=== PATIENT | female | born 1990 | race Caucasian/White ===

== ENCOUNTER 2018-02-11 18:12 | Observation (INO) ==
--- NOTE | 2018-02-11 19:20 | Emergency Department Note ---
Disposition Clinical Impression: Heart palpitations Syncope Qualifiers: Syncope type: unspecified Qualified Code(s): R55 - Syncope and collapse Chest pain Qualifiers: Chest pain type: unspecified Qualified Code(s): R07.9 - Chest pain, unspecified Disposition: Admitted As Inpatient Condition: Good Instructions: Syncope (ED) Referrals: Clarice Tirado DO [Primary Care Provider] - Forms: ED Satisfaction Letter Time of Disposition: 20:34 General Adult HPI - General Chief complaint: ED Syncope Stated complaint: syncopal episode,headache Time Seen by Provider: 02/11/18 18:30 Source: patient Mode of arrival: ambulatory Limitations: no limitations Nursing Notes Reviewed: Yes Vital Signs Reviewed: Yes - History of Present Illness HPI Narrative: Patient is a 27-year-old female that presents the emergency department after a syncopal episode. Patient states that this is been the third time that she has passed out in approximately 5 days. Patient states that she has been seen at our ER yesterday and outside hospital approximately 4 days ago. Patient states that both workups were negative and she was discharged home. Patient states that during her episodes of syncope she has palpitations and feels like her heart is fluttering and has chest pain. Patient denies any previous episodes of syncope prior to the past 5 days. Patient does state that she has had upper respiratory symptoms including cough and nasal congestion. Pain Scale: 5 - Related Data Home Medications Medication Instructions Recorded Confirmed ARIPiprazole [Abilify] 5 mg PO DAILY 02/11/18 02/11/18 Escitalopram [Lexapro] 20 mg PO HS 02/11/18 02/11/18 Norethindrone AC-Eth Estradiol 1 tab PO DAILY 02/11/18 02/11/18 [Microgestin 21 1-20 Tablet] clonazePAM [Klonopin] 0.5 mg PO BID 02/11/18 02/11/18 Allergies Allergy/AdvReac Type Severity Reaction Status Date / Time Sulfa (Sulfonamide Allergy See Verified 02/11/18 20:20 Antibiotics) Comments bupropion [From Wellbutrin] AdvReac Hypertensio Verified 02/11/18 20:20 n All systems ED: reviewed and negative except as stated. Cardiovascular: Reports: chest pain, palpitations Respiratory: Reports: cough. 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 Absent: respiratory distress, wheezes - Cardiovascular Cardiovascular exam: Present: regular rate, normal rhythm, normal heart sounds, +S1, +S2 - Abdominal Exam Abdominal exam: Present: soft, Non-Tender, normal bowel sounds - Neurological Exam Neurological exam: Present: alert, oriented X3 - Psychiatric Psychiatric exam: Present: normal affect, normal mood - Skin Skin exam: Present: warm, dry, intact Course Vital Signs Temperature 98.3 F 02/11/18 18:15 Pulse Rate 96 02/11/18 18:15 Respiratory Rate 15 02/11/18 18:15 Blood Pressure 124/88 02/11/18 18:15 O2 Sat by Pulse Oximetry 98 02/11/18 18:15 Temperature 98.3 F 02/11/18 18:25 Pulse Rate 79 02/11/18 20:14 Respiratory Rate 20 02/11/18 20:14 Blood Pressure 122/90 02/11/18 20:14 O2 Sat by Pulse Oximetry 96 02/11/18 20:14 Oxygen Delivery Oxygen Delivery Room Air Medical Decision Making - [facility] Narrative Medical decision making narrative: Due the patient having multiple syncopal episodes we will obtain basic laboratory testing including H&H, BMP, troponin and EKG. The patient will need to be admitted to the hospital for further evaluation and management due to unclear etiology why the patient has been having the syncopal episodes. Patient 's laboratory testing was unremarkable. EKG did not show any ischemic changes or any evidence of cardiac arrhythmia at this time. Due the patient's recurrence of syncopal episodes of unexplained etiology and feel that is necessary for the patient to be admitted to the hospital for further evaluation and management. This was discussed with the patient and she was agreeable for admission. Patient will be admitted to the hospital this time for further evaluation and management. I called and spoke with the admitting hospitalist Dr. Nunez and he is except the patient to their service. Patient be admitted to the hospital this time for further evaluation and management. - Lab Data Lab results reviewed: Yes I reviewed the patient's lab results. Result diagrams: 02/11/18 19:19 02/11/18 19:19 Lab Results 02/11/18 02/11/18 Range/Units 19:19 19:19 Hgb 13.3 (11.5-15.4) g/dL Hct 38.2 (35.3-44.9) % Sodium 139 (136-145) mEq/L Potassium 3.8 (3.5-5.1) mEq/L Chloride 108 H (98-107) mEq/L Carbon Dioxide 23 (23-29) mEq/L BUN 7 (6-20) mg/dL Creatinine 0.69 (0.60-1.20) mg/dL Est GFR ( Amer) > 60 (> 60) Est GFR (Non-Af Amer) > 60 (> 60) BUN/Creatinine Ratio 10 (6-26) Glucose 112 H (70-105) mg/dL Calculated Osmolality 287 (280-300) Calcium 9.4 (8.6-10.3) mg/dL Troponin I < 0.03 (< 0.04) ng/mL - EKG Data EKG #1 EKG attestation: Yes I reviewed and interpreted this EKG. EKG results narrative: EKG shows a sinus rhythm at 70 beats from the, ND interval of 172, QRS duration 91, QTC of 419. Normal axis. No evidence of STEMI and EKG. No evidence of WPW or Brugada.
[2018-02-11 19:40] LABS: Hematocrit 38.2 % (35.3-44.9); Hemoglobin 13.3 g/dL (11.5-15.4)
[2018-02-11 20:01] LABS: Troponin I < 0.03 ng/mL (< 0.04)
[2018-02-11 20:04] LABS: BUN/Creatinine Ratio 10 (6-26); Blood Urea Nitrogen 7 mg/dL (6-20); Calcium 9.4 mg/dL (8.6-10.3); Carbon Dioxide 23 mEq/L (23-29); Chloride 108 mEq/L (98-107); Glucose 112 mg/dL (70-105); Osmolality,Calculated 287 (280-300); Potassium 3.8 mEq/L (3.5-5.1); Sodium 139 mEq/L (136-145); eGFR For Non-African Americans > 60 (> 60)
--- NOTE | 2018-02-11 21:12 | Emergency Department Note ---
Disposition Clinical Impression: Heart palpitations Syncope Qualifiers: Syncope type: unspecified Qualified Code(s): R55 - Syncope and collapse Chest pain Qualifiers: Chest pain type: unspecified Qualified Code(s): R07.9 - Chest pain, unspecified Disposition: Admitted As Inpatient Condition: Good Instructions: Syncope (ED) Referrals: Clarice Tirado DO [Primary Care Provider] - Forms: ED Satisfaction Letter General Adult HPI - General Chief complaint: ED Syncope Stated complaint: syncopal episode,headache Time Seen by Provider: 02/11/18 18:30 Source: patient Mode of arrival: ambulatory Limitations: no limitations - History of Present Illness Pain Scale: 5 - Related Data Home Medications Medication Instructions Recorded Confirmed ARIPiprazole [Abilify] 5 mg PO DAILY 02/11/18 02/11/18 Escitalopram [Lexapro] 20 mg PO HS 02/11/18 02/11/18 Norethindrone AC-Eth Estradiol 1 tab PO DAILY 02/11/18 02/11/18 [Microgestin 21 1-20 Tablet] clonazePAM [Klonopin] 0.5 mg PO BID 02/11/18 02/11/18 Allergies Allergy/AdvReac Type Severity Reaction Status Date / Time Sulfa (Sulfonamide Allergy See Verified 02/11/18 20:20 Antibiotics) Comments bupropion [From Wellbutrin] AdvReac Hypertensio Verified 02/11/18 20:20 n Cardiovascular: Reports: chest pain, palpitations Respiratory: Reports: cough. 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 - Social History Smoking Status: Current every day smoker Smokeless Tobacco Status: No Alcohol use: Reports: none Drug use: Reports: none Physical Exam - General Limitations: no limitations General appearance: alert, in no apparent distress Course Vital Signs Temperature 98.3 F 02/11/18 18:15 Pulse Rate 96 02/11/18 18:15 Respiratory Rate 15 02/11/18 18:15 Blood Pressure 124/88 02/11/18 18:15 O2 Sat by Pulse Oximetry 98 02/11/18 18:15 Temperature 98.3 F 08/28/18 18:25 Pulse Rate 79 02/11/18 20:14 Respiratory Rate 20 02/11/18 20:14 Blood Pressure 122/90 02/11/18 20:14 O2 Sat by Pulse Oximetry 96 02/11/18 20:14 Oxygen Delivery Oxygen Delivery Room Air Medical Decision Making - Lab Data Result diagrams: 02/11/18 19:19 02/11/18 19:19 Lab Results 02/11/18 02/11/18 Range/Units 19:19 19:19 Hgb 13.3 (11.5-15.4) g/dL Hct 38.2 (35.3-44.9) % Sodium 139 (136-145) mEq/L Potassium 3.8 (3.5-5.1) mEq/L Chloride 108 H (98-107) mEq/L Carbon Dioxide 23 (23-29) mEq/L BUN 7 (6-20) mg/dL Creatinine 0.69 (0.60-1.20) mg/dL Est GFR ( Amer) > 60 (> 60) Est GFR (Non-Af Amer) > 60 (> 60) BUN/Creatinine Ratio 10 (6-26) Glucose 112 H (70-105) mg/dL Calculated Osmolality 287 (280-300) Calcium 9.4 (8.6-10.3) mg/dL Troponin I < 0.03 (< 0.04) ng/mL Attestation Statement - Attestation Attestation: I examined this patient and my medical decision-making was reviewed with the Resident Physician. I agree with the documented findings, disposition and treatment plan as described except to the extent set forth below. Recurrent syncope, 3 times over the last 2-3 days, associated with chest pain and palpitations. EKG was reviewed by me and by the resident, no evidence of ARVC, Brugada syndrome, Iaxxk-Dbhsonxnx-Aziia syndrome, ischemia or any other abnormality. Normal intervals and QRS duration. Due to the recurrent nature of her syncope and associated palpitations, admission for cardiac monitoring and radiology evaluation is warranted.
[2018-02-12] MEDS ORDERED: Naloxone 0.4 MG/ML INJ IVP PRN (01:18)
--- NOTE | 2018-02-12 01:26 | Internal Med History&Physical ---
Date of Encounter: 02/12/18 Time of Encounter: 01:23 Internal Medicine - H&P: HPI Chief complaint: passed out History of present illness: Ms. George is a 27 year old female with past medical history of generalized anxiety disorder and depression came in with complaining of multiple episodes of syncope. Patient had an episode of syncope on Saturday and yesterday. On one of the episodes which happened at work while she was standing and talking. See felt that something was wrong and had palpitations before she passed out. She was slowly able to land herself on the floor. Does not think that she had any seizure episodes. Denies any previous history of seizure episodes. Denied nausea or sweating before passing out. She did have some sensation of room spinning however also felt blacking out before passing out. Denies previous episodes of syncope before Saturday. Loss of consciousness about less than 30 seconds every time. She would have headaches after regaining consciousness. Denies any shortness of breath or sweating episodes. Does have occasional sharp pain on the left side of her chest. No identifiable provocative factors. No past history of any heart problems. No family history of any heart problems. She does have some diarrhea over the past week. She has about 2-3 episodes of loose bowel movements after she eats over the last week. She has some cough over the past few days and feels her sinuses are somewhat congested. Denies any hearing problem, sore throat or ear discharge. She has been taking Abilify and Lexapro for many months. Clonopin started recently. Past Med Surg Social Fam HX - Past Medical History Medical history: migraine Additional medical history: Ulcers Psychiatric history: anxiety, depression - Past Surgical History Surgical History: cholecystectomy Additional surgical history: D & C - Social History Smoking Status: Current every day smoker Smokeless Tobacco Status: No Alcohol use: none Drug use: none - Family History Mother Hx Family Cardiac Disorders: Yes (HTN) Hx Family Endocrine Disorder: Yes (DM) Internal Medicine - H&P: Meds ARIPiprazole [Abilify] 5 mg PO DAILY 02/11/18 [History] Escitalopram [Lexapro] 20 mg PO HS 02/11/18 [History] Norethindrone AC-Eth Estradiol [Microgestin 21 1-20 Tablet] 1 tab PO DAILY 02/11 [History] clonazePAM [Klonopin] 0.5 mg PO BID 02/11/18 [History] 3 Allergy/AdvReac Type Severity Reaction Status Date / Time Sulfa (Sulfonamide Allergy See Verified 02/11/18 20:20 Antibiotics) Comments bupropion [From Wellbutrin] AdvReac Hypertensio Verified 02/11/18 20:20 n All Systems PM: A 10-system review of systems was performed and is negative for pertinent findings except as documented above in the HPI. - Constitutional Vitals: Temp Pulse Resp BP Pulse Ox 98.4 F 68 16 113/75 98 02/11/18 23:39 02/11/18 23:39 02/11/18 23:39 02/11/18 23:42 02/11/18 23:39 General appearance: Present: A&O X 3, no acute distress, obese Exam: Const: Vital signs listed above. In no acute distress. Alert and oriented Xs 3. No mood disorders noted, calm affect. Eyes: Sclera white, conjunctiva clear, lids are without lag. PERRLA. Pupils and irises are equal and round without defect. ENT: TMs intact and clear, normal canals, grossly normal hearing. Oropharanx clear and moist without erythema. Gums pink, good dentition. Lymph/Neck: No masses, thyromegaly, or abnormal cervical notes. No bruit. Tracheal midline. Cardio: RRR, Normal S1, S2 w/o murmurs, rubs or gallops. Skin warm and dry. No peripheral edema. Respiratory: Chest symmetrical, respirations non-labored. Clear bilaterally to auscultation. No adventitious sounds. Musculo: No deformity or scoliosis noted. No gait disturbance noted. No cyanosis or edema. Pulses normal in all 4 extremities. No atrophy or abnormal movements. Appropriate muscle strength bilaterally. Neurologic: No focal deficits, cranial nerves II-XII grossly intact with normal sensation, reflexes, coordination, muscle strength and tone. GI/Abdomen: Soft, non tender, non distended, no hepatosplemomegaly, normal bowel sounds, no masses noted. Internal Med - H&P Results - Labs CBC & Chem 7: 02/11/18 19:19 02/11/18 19:19 - Assessment and plan (1) Syncopal episodes Current Visit: Yes Status: Acute Assessment and plan: - Syncopal episodes with a sensation of palpitation before. - EKG shows normal sinus rhythm. No previous history of arrhythmias or cardiac problems. Recent head CT,chest x-ray and chest CTA unremarkable. - We will monitor patient on telemetry. - We will obtain orthostatic Vitals. - Consult cardiology in the morning. We will defer echocardiogram to cardiology. - Possible that could be related to her mild diarrhea. However it appears to be less likely. ENT causes pierced to be unlikely. Qualifiers: Syncope type: unspecified Qualified Code(s): R55 - Syncope and collapse (2) Heart palpitations Current Visit: Yes Status: Acute Assessment and plan: See above (3) Depression Current Visit: No Status: Chronic Assessment and plan: Continue home Abilify and Lexapro Qualifiers: Depression Type: major depressive disorder Major depression recurrence: recurrent Active/Remission status: currently active Major depression episode severity: mild Qualified Code(s): F33.0 - Major depressive disorder, recurrent, mild (4) DVT prophylaxis Current Visit: Yes Status: Acute Assessment and plan: Low risk. - Not indicated - Time Spent With Patient Total time spent is greater than 50% in coordination of care (as documented) at patient's floor/unit and/or counseling patient: - VTE Reasons for not Prescribing Prophylaxis: Treatment not Indicated - Low risk for VTE
[2018-02-12] MEDS: clonazePAM 0.5 MG TABLET PO SCH ×2 (08:45→20:19)
[2018-02-12] MEDS: ARIPiprazole 5 MG TABLET PO SCH (08:45)
[2018-02-12 11:51] LABS: BUN/Creatinine Ratio 12 (6-26); Blood Urea Nitrogen 8 mg/dL (6-20); Calcium 9.3 mg/dL (8.6-10.3); Carbon Dioxide 27 mEq/L (23-29); Chloride 107 mEq/L (98-107); Glucose 99 mg/dL (70-105); Osmolality,Calculated 288 (280-300); Potassium 4.1 mEq/L (3.5-5.1); Sodium 140 mEq/L (136-145); eGFR For Non-African Americans > 60 (> 60)
--- NOTE | 2018-02-12 12:14 | Internal Med Progress Note ---
Hospitalist Progress Note - Encounter Date of Encounter: 02/12/18 Time of Encounter: 12:14 - Subjective Interval History: Patient seen and examined at bedside. She denies any CP or palpitations voiced at this time - Exam Vitals: Temp Pulse Resp BP Pulse Ox 98.3 F 89 14 105/65 94 02/12/18 11:24 02/12/18 11:24 02/12/18 11:24 02/12/18 11:24 02/12/18 11:24 Exam: Const: Vital signs listed above. In no acute distress. Alert and oriented Xs 3. No mood disorders noted, calm affect. Eyes: Sclera white, conjunctiva clear, lids are without lag. PERRLA. Pupils and irises are equal and round without defect. ENT: TMs intact and clear, normal canals, grossly normal hearing. Oropharanx clear and moist without erythema. Gums pink, good dentition. Lymph/Neck: No masses, thyromegaly, or abnormal cervical notes. No bruit. Tracheal midline. Cardio: RRR, Normal S1, S2 w/o murmurs, rubs or gallops. Skin warm and dry. No peripheral edema. Respiratory: Chest symmetrical, respirations non-labored. Clear bilaterally to auscultation. No adventitious sounds. Musculo: No deformity or scoliosis noted. No gait disturbance noted. No cyanosis or edema. Pulses normal in all 4 extremities. No atrophy or abnormal movements. Appropriate muscle strength bilaterally. Neurologic: No focal deficits, cranial nerves II-XII grossly intact with normal sensation, reflexes, coordination, muscle strength and tone. GI/Abdomen: Soft, non tender, non distended, no hepatosplemomegaly, normal bowel sounds, no masses noted. - Assessment and Plan (1) Syncopal episodes Current Visit: Yes Status: Acute Assessment and Plan: - Syncopal episodes with a sensation of palpitation prior to incident - EKG shows normal sinus rhythm. No previous history of arrhythmias or cardiac problems. Recent head CT,chest x-ray and chest CTA unremarkable. - Cont monitor patient on telemetry. - We will obtain orthostatic Vitals. - Consult cardiology appreciate recommendations - cardiac echo (2) Depression Current Visit: No Status: Chronic Assessment and Plan: Continue home Abilify and Lexapro (3) Heart palpitations Current Visit: Yes Status: Acute Assessment and Plan: See above (4) DVT prophylaxis Current Visit: Yes Status: Acute Assessment and Plan: Low risk. - Not indicated - Time Spent with Patient Total time spent is greater than 50% in coordination of care (as documented) at patient's floor/unit and/or counseling patient: Internal Medicine: Result - Labs CBC & Chem 7: 02/11/18 19:19 02/12/18 10:40 Labs: BMP 02/12/18 10:40 Sodium 140 Potassium 4.1 Chloride 107 Carbon Dioxide 27 BUN 8 Creatinine 0.69 Glucose 99 Calcium 9.3 - VTE Reasons for not Prescribing Prophylaxis: Treatment not Indicated - Low risk for VTE Consult Discharge Plan - Plan Referrals: Clarice Tirado DO [Primary Care Provider] - (1) Syncopal episodes Qualifiers: Syncope type: unspecified Qualified Code(s): R55 - Syncope and collapse (2) Depression Qualifiers: Depression Type: major depressive disorder Major depression recurrence: recurrent Active/Remission status: currently active Major depression episode severity: mild Qualified Code(s): F33.0 - Major depressive disorder, recurrent , mild
[2018-02-12] MEDS ORDERED: Ibuprofen 400 MG TABLET PO PRN (16:34)
--- NOTE | 2018-02-13 08:28 | Cardiology Consult Note ---
Date of Encounter: 02/13/18 Time of Encounter: 09:42 Assessment and Plan (1) Heart palpitations Current Visit: Yes Status: Acute (2) Syncopal episodes Current Visit: Yes Status: Acute Qualifiers: Syncope type: unspecified Qualified Code(s): R55 - Syncope and collapse Discussion w patient/family: The patient's syncope with palpitations may be related to an underlying arrhythmia. EKG was nsr without signs of Brugada or WPW. TTE showed normal right and left ventricular function with an estimated EF of 55-60%. No outflow obstruction noted on exam. Orthostatic BP on 02/11 were normal. Orthostatic vital signs have not been charted at this time. Telemetry over the past 24 hours does not show any significant bradycradia, pauses, blocks, or other concerning signs for causes of syncope. We recommend an event monitor be given to the patient on discharge to record any arrhythmias during syncopal episodes. The assessment and plan as outlined above was discussed with the patient and/or family members who expressed understanding and agreement. All questions were answered. Thank you for involving us in the care of your patient. Please call with any questions. History of Present Illness Consult date: 02/12/18 Requesting physician: Melyssa Saucedo Consult reason: syncope Chief complaint: syncope History of present illness: Ms. George is a 27 year old female who presented to the ED after a syncopal episode. She has passed out 3 times over the past week and has been seen for all three episodes. She states all three times she was walking into work and had not recently stood up. The second time she passed out was witnessed, and the patient states she was only unconscious for about 30 seconds without hitting her head or episodes of shaking. She did not bite her tongue or lose control of her bowels or bladder during any of these episodes. She remembers the events and when waking up would feel "fuzzy" for a couple of minutes but quickly returned to normal mental status without any neurologic deficits. During the two most recent episodes she felt as if her heart was racing before she passed out, and was aware of her vision blacking out. She did not have chest pain or shortness of breath before or after passing out. She felt dizzy and had a headache after passing out all three times. She currently denies palpitations but still feels as if the room is spinning around her. She has never passed out or almost passed out before. There is no family history of syncope or heart disease, and she is unaware if anyone in her family suddenly from an unknown cause. She denies medical history and only takes medications for depression and anxiety. She denies being under a significant amount of stress. Past Med Surg Social Fam HX - Past Medical History Medical history: migraine Additional medical history: Ulcers Psychiatric history: anxiety, depression - Past Surgical History Surgical History: cholecystectomy Additional surgical history: D & C - Social History Smoking Status: Current every day smoker Smokeless Tobacco Status: No Alcohol use: none Drug use: none - Family History Mother Hx Family Cardiac Disorders: Yes (HTN) Hx Family Endocrine Disorder: Yes (DM) Medications and Allergies ARIPiprazole [Abilify] 5 mg PO DAILY 02/11/18 [History] Escitalopram [Lexapro] 20 mg PO HS 02/11/18 [History] Norethindrone AC-Eth Estradiol [Microgestin 21 1-20 Tablet] 1 tab PO DAILY 02/11 [History] clonazePAM [Klonopin] 0.5 mg PO BID 02/11/18 [History] 3 Allergy/AdvReac Type Severity Reaction Status Date / Time Sulfa (Sulfonamide Allergy See Verified 02/11/18 20:20 Antibiotics) Comments bupropion [From Wellbutrin] AdvReac Hypertensio Verified 02/11/18 20:20 n All Systems Review: The remainder of the systems were reviewed and are negative - Constitutional Constitutional: headache(s), weakness, no fatigue, no fever(s) - Cardiovascular Cardiovascular: palpitations, rapid heart rate, no chest pain at rest, no chest pain with exertion, no diaphoresis, no dyspnea at rest, no dyspnea on exertion, no leg edema - Respiratory Respiratory: no cough, no dyspnea, no hemoptysis, no wheezing - Gastrointestinal Gastrointestinal: no abdominal pain, no constipation, no diarrhea, no nausea - Genitourinary Genitourinary: no dysuria, no hematuria - Musculoskeletal Musculoskeletal: no abnormal gait, no back pain, no muscle cramps, no muscle weakness - Integumentary Integumentary: no erythema, no rash - Neurological Neurological: dizziness, syncope, no abnormal speech, no focal weakness, no numbness - Psychiatric Psychiatric: anxiety, depression - Hematological/Lymphatic Hematologic/Lymphatic: no easy bleeding, no easy bruising Physical Examination Vital Signs, Last 4 Hours Temp Pulse Resp BP Pulse Ox 02/13/18 07:37 97.8 F 80 18 117/75 99 General: Conversant, No Apparent Distress HEENT: Atraumatic, Normocephaly, Mucus Membranes Moist Neck: No JVD, Normal carotid pulses Cardiac: Reg Rate and Rhythm, Normal S1 and S2, Other (Grade 2 systolic murmur L 2nd ICS) Lungs: Normal Breath Sounds, No Wheeze, Rales, Rhonchi Neuro: Alert and responsive, No focal deficits noted Abdomen: Soft, Non-Tender Skin: No rashes noted on visualized skin Musculoskeletal: No Chest Wall Tenderness Extremities: No Clubbing, No Cyanosis, No Edema, Normal Pulses Results 02/11/18 19:19 02/12/18 10:40 Lab Results 02/12/18 10:40 Sodium 140 Potassium 4.1 Chloride 107 Carbon Dioxide 27 BUN 8 Creatinine 0.69 Glucose 99 Calcium 9.3 Consult Discharge Plan - Plan Referrals: Clarice Tirado DO [Primary Care Provider] -
[2018-02-13] MEDS: clonazePAM 0.5 MG TABLET PO SCH (09:08)
[2018-02-13] MEDS: ARIPiprazole 5 MG TABLET PO SCH (09:08)
--- NOTE | 2018-02-13 14:32 | Discharge Summary ---
- NOTES TO OUTPATIENT PROVIDER Notes to Outpatient Provider: will need holter monitor as outpatient Orders not resulted at time of discharge: Pending orders 02/13/18 14:22 ECG event monitor 2 weeks [ECG] Routine Date of Encounter: 02/13/18 Time of Encounter: 14:30 - Discharge Diagnosis (1) Syncopal episodes Priority: Primary Status: Acute Qualifiers: Syncope type: unspecified Qualified Code(s): R55 - Syncope and collapse (2) Depression Priority: Secondary Status: Chronic Qualifiers: Depression Type: major depressive disorder Major depression recurrence: recurrent Active/Remission status: currently active Major depression episode severity: mild Qualified Code(s): F33.0 - Major depressive disorder, recurrent, mild (3) Heart palpitations Priority: Secondary Status: Acute Hospital course: Ms. George is a 27 year old female PMH of migraine cholecystectomy current smoker - presented to the ED after experiencing syncopal episode. She has passed out 3 times over the past 2-3 days. She was medically evaluated for each episode SHe states all three she was walking into work and had not recently stood up. She did expereince palpitations prior to episode She did have one episode which was witnessed, there was no loss of bowel or bladder and she was unconscious for approx 30 seconds. EKG was unremarkable NSR without signs of WPW or Brugada . Initial orthostatic VS normal echo was completed which did show an EF 55-60 % Telemetry for past 24 hrs without any significant bradycardia pauses blocks. CT scan completed 02/07/18 Negative for any acute intracranial abnormality CTA completed 02/10/2018 Negative for PE Cardiology was consulted who recommended ECG event monitor Repeat orthostatic VS normal- Advised patient to follow up with PCP to set up event monitor as outpatient - advised to avoid stimulants such as caffeine and nicotine -She is concerned about driving advised to have someone drive until she is seen by PCP. I answered questions asked by patient as well as mother who is at bedside. She is hemodynamically stable and ready for discharge - Time Spent with Patient Total time spent providing and/or coordinating discharge services: - Discharge Medications Home Medications: ARIPiprazole [Abilify] 5 mg PO DAILY 02/11/18 [History] Escitalopram [Lexapro] 20 mg PO HS 02/11/18 [History] Norethindrone AC-Eth Estradiol [Microgestin 21 1-20 Tablet] 1 tab PO DAILY 02/11 [History] clonazePAM [Klonopin] 0.5 mg PO BID 02/11/18 [History] Allergies/Adverse Reactions: 3 Allergy/AdvReac Type Severity Reaction Status Date / Time Sulfa (Sulfonamide Allergy See Verified 02/11/18 20:20 Antibiotics) Comments bupropion [From Wellbutrin] AdvReac Hypertensio Verified 02/11/18 20:20 n Date of admission: 02/11/18 21:38 Primary care physician: Clarice Tirado DO Discharging clinician: Melyssa Saucedo Anticipated date of discharge: 02/13/18 - Constitutional Vitals: Temp Pulse Resp BP Pulse Ox 98.1 F 70 18 97/61 99 02/13/18 11:46 02/13/18 11:46 02/13/18 11:46 02/13/18 11:46 02/13/18 11:46 General appearance: Present: A&O X 3, no acute distress, obese Exam: Const: Vital signs listed above. In no acute distress. Alert and oriented Xs 3. No mood disorders noted, calm affect. Eyes: Sclera white, conjunctiva clear, lids are without lag. PERRLA. Pupils and irises are equal and round without defect. ENT: TMs intact and clear, normal canals, grossly normal hearing. Oropharanx clear and moist without erythema. Gums pink, good dentition. Lymph/Neck: No masses, thyromegaly, or abnormal cervical notes. No bruit. Tracheal midline. Cardio: RRR, Normal S1, S2 w/o murmurs, rubs or gallops. Skin warm and dry. No peripheral edema. Respiratory: Chest symmetrical, respirations non-labored. Clear bilaterally to auscultation. No adventitious sounds. Musculo: No deformity or scoliosis noted. No gait disturbance noted. No cyanosis or edema. Pulses normal in all 4 extremities. No atrophy or abnormal movements. Appropriate muscle strength bilaterally. Neurologic: No focal deficits, cranial nerves II-XII grossly intact with normal sensation, reflexes, coordination, muscle strength and tone. GI/Abdomen: Soft, non tender, non distended, no hepatosplemomegaly, normal bowel sounds, no masses noted. - Head Head exam: Present: atraumatic, normocephalic - Eye Eye exam: Present: PERRL, conjuntiva pink, sclera anicteric Pupils: Present: PERRL - Neck Neck exam general surgery: Present: supple, trachea midline. Absent: lymphadenopathy - Respiratory Respiratory exam: Present: CTAB. Absent: accessory muscle use, rales, rhonchi, wheezes - Cardiovascular Cardiovascular exam: Present: RRR, +S1, +S2. Absent: diastolic murmur, gallop, rubs, systolic murmur - GI/Abdominal GI/Abdominal exam: Present: normal bowel sounds, soft, no peritoneal signs. Absent: distended, tenderness - Extremities Exam Extremities exam: Present: warm, radial pulses palpable and symmetrical. Absent : calf tenderness, cyanotic, pedal edema - Neurological Exam Neurological exam: Present: CN II-XII intact, oriented X3, no focal deficits. Absent: pronater drift, facial droop, speech deficit - Skin Skin exam: Present: dry, intact - Patient Status Disposition: Home, Self-Care Condition: Good Functional capacity at discharge: independent ambulation Overall status at discharge: patient is back to baseline - Discharge Instructions Instructions: Chest Pain (DC), Syncope (DC) Follow Up With: Clarice Tirado DO [Primary Care Provider] - 02/18/18 10:00 am - Diet and Activity Activity: increase activity as tolerated Diet: other (No caffeine) - VTE Reasons for not Prescribing Prophylaxis: Treatment not Indicated - Low risk for VTE
[2018-02-13 14:47] VITALS: BP 104/66
--- NOTE | 2018-02-17 14:00 | Electrocardiograph Report ---
[address] [address] Test Date: 2018-02-11 Pat Name: Zuleyka George Department: [id number] Room: 3B48 Gender: F Hand Salter: : 1990 Requested By: Tho Keita Order Number: [id number] Reading MD: Stephen Justin Measurements Intervals [place] Rate: 79 P: 53 [place]: 172 QRS: 75 QRSD: 91 T: 22 QT: 365 QTc: 419 Interpretive Statements Sinus rhythm Electronically Signed On 02-17-2018 13:58:44 EDT by Stephen Justin
== END 2018-02-13 15:47 | disposition home or self-care (01) ==
LOC: EMEROOARM 18:12 → 3BNU 18:12
PROVIDERS: ADMIT Family Medicine; ATTEND Family Medicine